=== PATIENT | female | born 1990 ===

== ENCOUNTER 2021-05-14 08:22 | Outpatient (CLI) | payer OTHER, MEDICAID ==
[2021-05-14 10:51] LABS: Hemoglobin 11.8 g/dL (12.0-15.5); Mean Corpuscular HGB CONC 33.3 g/dL (32.0-36.0); Mean Corpuscular Hemoglobin 27.4 pg (27.0-33.0); Mean Corpuscular Volume 82.3 fl (81.6-98.3); Mean Platelet Volume 10.6 fl (7.4-10.4); Platelet Count 270 10x3/uL (150-450); RBC Distribution Width 15.9 % (11.5-14.5); White Blood Cell (WBC) Count 9.5 10x3/uL (3.5-10.5)
[2021-05-14 11:24] LABS: Hep B Surf Ag Non-Reactive S/CO (NonReactive)
[2021-05-14 11:25] LABS: Syphilis Antibody Nonreactive (Nonreactive); Syphilis Antibody Index 0.05 S/CO (<1.00 Non-Reactive)
[2021-05-14 11:33] LABS: HBSAg Index 0.17 S/CO (0-0.99)
[2021-05-14 20:33] LABS: SARS-CoV-2 PCR by NAA Not Detected (NotDetected)
== END 2021-05-14 08:23 | disposition home or self-care (01) ==
LOC: CSHLAB 08:22
PROVIDERS: ATTEND Obstetrics & Gynecology
DX: Z01.812 Encounter for preprocedural laboratory examination (principal); Z20.822 Contact with and (suspected) exposure to COVID-19; O34.211 Maternal care for low transverse scar from previous cesarean delivery
CPT/HCPCS: 85027; 86780; 86900; 86901; 87340; U0003; U0005